=== PATIENT | female | born 1995 | race American Indian/Alaskan Native ===

== ENCOUNTER 2017-05-25 09:43 | Emergency (ER) | payer OTHER ==
[2017-05-25 11:12] VITALS: BP 126/77
[2017-05-25] MEDS ORDERED: PROVENTIL IH ONE (12:25)
[2017-05-25] MEDS ORDERED: DELTASONE PO ONE (12:26)
[2017-05-25] MEDS ORDERED: ATROVENT IH ONE (12:26)
[2017-05-25] MEDS ORDERED: MACROBID PO ONE (12:36)
--- NOTE | 2017-05-25 12:36 | Emergency Department Report ---
Blank Doc - Documentation Documentation: Patient is a 22-year-old female comes in with cough and wheezing and vaginal discharge patient is . We'll give albuterol ipratropium will get urinalysis.
[2017-05-25 12:50] LABS: HCG Qualitative,Urine Positive (Negative)
[2017-05-25 12:51] LABS: Bacteria,Urine 1+ /HPF (Negative); Bilirubin,Urine NEG (Negative); Blood,Urine NEG (Negative); Color,Urine Yellow (Yellow); Mucus,Urine 3+ /HPF
[2017-05-25] MEDS ORDERED: REGLAN PO ONE (14:00)
--- NOTE | 2017-05-25 14:05 | Emergency Department Report ---
- General Chief Complaint: Upper Respiratory Infection Stated Complaint: URI Time Seen by Provider: 05/25/17 13:59 Source: patient Mode of arrival: Ambulatory Limitations: No Limitations - History of Present Illness Initial Comments: This is a 22-year-old female nontoxic, well nourished in appearance, no acute signs of distress presents to the ED with c/o of productive cough, nausea , rhinorrhea, nasal congestion x2 days. Patient describes productive cough as yellow mucus production. Patient denies any sick contact. Patient denies any recent travels, long car, recent hospital stays. Patient denies any calf pain or calf tenderness. Patient denies any chest pain, short of breath, fever, chills, nausea, vomiting, hemoptysis, numbness, tingling, headache or stiff neck. Patient denies any vaginal bleeding or abdominal pain. Patient states she is 15 weeks and has following up with Dr. Hoover with normal . Patient is also c/o of dysuria and vaginal discharge and describes vaginal discharge as white with follow-up. Patient denies any concerns about STD. Patient denies any past medical history. Allergies includes acetaminophen , NSAIDs and oxycodone. MD Complaint: cough, rhinorrhea, nasal congestion, other (nausea) -: days(s) Severity: mild Severity scale (0 -10): 2 Quality: burning Consistency: constant Improves With: nothing Worsens With: nothing Associated Symptoms: rhinorrhea, nasal congestion, cough, dysuria. denies: fever, chills, myalgias, diaphoresis, headache, sore throat, stiff neck, chest pain, shortness of breath, abdominal pain, nausea, vomiting, diarrhea, rash, confusion, right sweats, weight loss, epistaxis, hoarseness, ear pain Treatments Prior to Arrival: none - Related Data Previous Rx's Medication Instructions Recorded Last Taken Type Azithromycin [Zithromax Z-BERTHA] 250 mg PO DAILY #6 tablet 05/25/17 Unknown Rx Metoclopramide [Reglan] 10 mg PO TID PRN #30 tab 05/25/17 Unknown Rx Nitrofurantoin Loving/M-Cryst 100 mg PO Q12HR #14 capsule 05/25/17 Unknown Rx [Macrobid CAP] metroNIDAZOLE [Flagyl] 500 mg PO Q12HR #14 tab 05/25/17 Unknown Rx Allergies Allergy/AdvReac Type Severity Reaction Status Date / Time acetaminophen [From Percocet] AdvReac Shortness Verified 05/25/17 11:07 of Breath NSAIDS (Non-Steroidal AdvReac Shortness Verified 05/25/17 11:07 Anti-Inflamma of Breath oxycodone [From Percocet] AdvReac Shortness Verified 05/25/17 11:07 of Breath ED Review of Systems ROS: Stated complaint: URI Other details as noted in HPI Constitutional: denies: chills, fever Eyes: denies: eye pain, eye discharge, vision change ENT: denies: ear pain, throat pain Respiratory: cough. denies: shortness of breath, wheezing Cardiovascular: denies: chest pain, palpitations Endocrine: no symptoms reported Gastrointestinal: denies: abdominal pain, nausea, diarrhea Genitourinary: dysuria, frequency. denies: urgency, discharge Musculoskeletal: denies: back pain, joint swelling, arthralgia Skin: denies: rash, lesions Neurological: denies: headache, weakness, paresthesias Psychiatric: denies: anxiety, depression Hematological/Lymphatic: denies: easy bleeding, easy bruising ED Past Medical Hx - Past Medical History Previous Medical History?: No - Surgical History Additional Surgical History: c sect - Social History Smoking Status: Current Every Day Smoker Substance Use Type: None - Medications Home Medications: Home Medications Medication Instructions Recorded Confirmed Last Taken Type Azithromycin [Zithromax Z-BERTHA] 250 mg PO DAILY #6 tablet 05/25/17 Unknown Rx Metoclopramide [Reglan] 10 mg PO TID PRN #30 tab 05/25/17 Unknown Rx Nitrofurantoin Loving/M-Cryst 100 mg PO Q12HR #14 capsule 05/25/17 Unknown Rx [Macrobid CAP] metroNIDAZOLE [Flagyl] 500 mg PO Q12HR #14 tab 05/25/17 Unknown Rx ED Physical Exam - General Limitations: No Limitations General appearance: alert, in no apparent distress - Head Head exam: Present: atraumatic, normocephalic - Eye Eye exam: Present: normal appearance Pupils: Present: normal accommodation - ENT ENT exam: Present: normal exam, normal orophraynx, mucous membranes moist - Neck Neck exam: Present: normal inspection, full ROM. Absent: tenderness, meningismus, lymphadenopathy - Respiratory Respiratory exam: Present: normal lung sounds bilaterally. Absent: respiratory distress, wheezes, rales, rhonchi, stridor, chest wall tenderness, accessory muscle use, decreased breath sounds, prolonged expiratory - Cardiovascular Cardiovascular Exam: Present: regular rate, normal rhythm, normal heart sounds. Absent: irregular rhythm, systolic murmur, diastolic murmur, rubs, gallop - GI/Abdominal GI/Abdominal exam: Present: soft, normal bowel sounds. Absent: distended, tenderness, guarding, rebound, rigid, diminished bowel sounds - Rectal Rectal exam: Present: deferred - Extremities Exam Extremities exam: Present: normal inspection, full ROM, normal capillary refill. Absent: calf tenderness - Back Exam Back exam: Present: normal inspection, full ROM. Absent: tenderness, CVA tenderness (R), CVA tenderness (L) - Neurological Exam Neurological exam: Present: alert, oriented X3, normal gait, reflexes normal - Psychiatric Psychiatric exam: Present: normal affect, normal mood - Skin Skin exam: Present: warm, dry, intact, normal color. Absent: rash ED Course Vital Signs 05/25/17 05/25/17 05/25/17 11:08 12:30 12:57 Temperature 98.9 F Pulse Rate 91 H Pulse Rate [ 107 H 102 H Anterior] Respiratory 22 Rate Respiratory 18 18 Rate [Anterior] Blood Pressure 126/77 O2 Sat by Pulse 98 Oximetry - Reevaluation(s) Reevaluation #1: 05/25/17 14:07 Patient is speaking in full sentences with no signs of distress noted. - Consultations Consultation #1: 05/25/17 14:07 Patient has been consulted with Dr. Camargo about patient history, physical exam, and labs and examined and screened patient and agrees to ED plan of care and discharge plan of care. ED Medical Decision Making - Medical Decision Making this is a 22-year-old female that presents with upper restaurant infection, UTI. Patient is stable and was examined by me and Dr. Camargo. As per Dr. Camargo, no symptoms of PE. No Chest x-ray to be obtained due to and just treat empirically. Due to patient having symptoms of upper respiratory infection and worsening I will treat patient empirically with zpak. Patient was instructed to increase hydration, rest. Patient received DuoNeb, prednisone , Reglan in the ED. patient stated that symptoms has significantly improved and subsided. Vitals stable. Patient is nonfebrile and normal heart rate. Patient was orally hydrated and patient tolerated well known nausea or vomiting. Patient was instructed Follow-up with a primary care doctor in 3-5 days or if symptoms worsen and continue return to emergency room as soon as possible. At time time of discharge, the patient does not seem toxic or ill in appearance. No acute signs of distress noted. Patient agrees to discharge treatment plan of care. No further questions noted by the patient. Critical care attestation.: If time is entered above; I have spent that time in minutes in the direct care of this critically ill patient, excluding procedure time. ED Disposition Clinical Impression: Upper respiratory infection Qualifiers: URI type: unspecified URI Qualified Code(s): J06.9 - Acute upper respiratory infection, unspecified UTI (urinary tract infection) Qualifiers: Urinary tract infection type: site unspecified Hematuria presence: without hematuria Qualified Code(s): N39.0 - Urinary tract infection, site not specified Disposition: TO HOME OR SELFCARE Is pt being admited?: No Does the pt Need Aspirin: No Condition: Stable Instructions: (ED), Upper Respiratory Infection (ED), Azithromycin ( By mouth), Urinary Tract Infection in Women (ED) Additional Instructions: Follow-up with a primary care doctor in 3-5 days or if symptoms worsen and continue return to emergency room as soon as possible. Do not consume any alcohol while taking antibiotics. Prescriptions: Azithromycin [Zithromax Z-BERTHA] 250 mg PO DAILY #6 tablet Metoclopramide [Reglan] 10 mg PO TID PRN #30 tab PRN Reason: Nausea metroNIDAZOLE [Flagyl] 500 mg PO Q12HR #14 tab Nitrofurantoin Loving/M-Cryst [Macrobid CAP] 100 mg PO Q12HR #14 capsule Referrals: PRIMARY CAREMD [Primary Care Provider] - 3-5 Days OSCAR CUBA MD [Staff Physician] - 3-5 Days [facility] [Outside] - 3-5 Days [facility] [Outside] - 3-5 Days CLOVER ALVARADO MD [Staff Physician] - 3-5 Days [facility] [Provider Group] - 3-5 Days Forms: Work/School Release Form(ED)
== END 2017-05-25 14:26 | disposition home or self-care (01) ==
LOC: ED 09:43
DX: O23.42 Unspecified infection of urinary tract in pregnancy, second trimester (principal); O99.512 Diseases of the respiratory system complicating pregnancy, second trimester; O99.332 Smoking (tobacco) complicating pregnancy, second trimester; J34.89 Other specified disorders of nose and nasal sinuses; Z3A.15 15 weeks gestation of pregnancy; Z88.6 Allergy status to analgesic agent
CPT/HCPCS: 81001; 81025; 87086; 94640; 99283; J7512